=== PATIENT | male | born 1980 | race African-American/Black ===

== ENCOUNTER 2021-07-25 02:27 | Emergency (ER) | payer OTHER ==
[~2021-07-25] VITALS: Ht 160 cm; Wt 65.2 kg
--- NOTE | 2021-07-25 03:51 | PHYS DOC ---
Past History Past Surgical History: No Surgical History (JUAN BURNETT MD) Alcohol Use: Occasionally Additional Alcohol Information: Pt reports drinking vodka tonight (JUAN BURNETT MD) Adult General Chief Complaint Chief Complaint: ALCOHOL INTOXICATION HPI HPI Patient is a 40-year-old male who presents from the [facility] via EMS when the staff at the [facility] felt he was intoxicated/unresponsive. Per EMS, had a normal glucose, no signs of trauma and normal vital signs. States that when they spoke to him he would wake up, speak appropriately and then go back to sleep. Patient stated that he did drink a large amount of vodka earlier in the day and just wants to sleep. Denies any other drug use. Denies any recent traumas, travels, fevers, chest pain, shortness of breath, abdominal pain, nausea, vomiting, diarrhea. Denies any numbness/weakness/tingling. (JUAN BURNETT MD) Review of Systems Review of Systems Review of systems otherwise unremarkable except noted in HPI (JUAN BURNETT MD) Allergies Allergies Allergies Coded Allergies Type Severity Reaction Last Updated Verified No Known Drug Allergies 07/25/21 No (JUAN BURNETT MD) Physical Exam Physical Exam Constitutional: Well developed, well nourished, no acute distress, non-toxic appearance. [] HENT: Normocephalic, atraumatic, bilateral external ears normal, oropharynx moist, no oral exudates, nose normal. [] Eyes: PERRLA, EOMI, conjunctiva normal, no discharge. [] Neck: Normal range of motion, no tenderness, supple, no stridor. [] Cardiovascular:Heart rate regular rhythm, no murmur [] Lungs & Thorax: Bilateral breath sounds clear to auscultation [] Abdomen: soft, no tenderness, no masses, no pulsatile masses. [] Skin: Warm, dry, no erythema, no rash. [] Extremities: No tenderness, no cyanosis, no clubbing, ROM intact, no edema. [] Neurologic: Alert and oriented X 3, normal motor function, normal sensory function, no focal deficits noted. [] Psychologic: Affect normal, judgement abnormal, appears intoxicated but will wake up, and answer questions appropriately but states he just wants to go to sleep. Denies SI, HI or hallucinations. (JUAN BURNETT MD) Current Patient Data Vital Signs Vital Signs Date Time Temp Pulse Resp B/P (MAP) Pulse Ox O2 Delivery O2 Flow Rate FiO2 07/25/21 03:39 70 16 108/60 (76) 98 Room Air 07/25/21 02:38 98.3 (JUAN BURNETT MD) Vital Signs Vital Signs Date Time Temp Pulse Resp B/P (MAP) Pulse Ox O2 Delivery O2 Flow Rate FiO2 07/25/21 02:38 98.3 59 18 121/68 (85) 99 Room Air Vital Signs Date Time Temp Pulse Resp B/P (MAP) Pulse Ox O2 Delivery O2 Flow Rate FiO2 07/25/21 06:16 86 18 113/72 (86) 98 Room Air 07/25/21 02:38 98.3 Lab Results Laboratory Tests Test 07/25/21 04:21 07/25/21 05:20 Glucose (Fingerstick) 90 mg/dL White Blood Count 5.3 x10^3/uL Red Blood Count 4.76 x10^6/uL Hemoglobin 15.3 g/dL Hematocrit 44.3 % Mean Corpuscular Volume 93 fL Mean Corpuscular Hemoglobin 32 pg Mean Corpuscular Hemoglobin Concent 35 g/dL Red Cell Distribution Width 13.8 % Platelet Count 307 x10^3/uL Neutrophils (%) (Auto) 65 % Lymphocytes (%) (Auto) 27 % Monocytes (%) (Auto) 7 % Eosinophils (%) (Auto) 1 % Basophils (%) (Auto) 1 % Neutrophils # (Auto) 3.5 x10^3uL Lymphocytes # (Auto) 1.4 x10^3/uL Monocytes # (Auto) 0.4 x10^3/uL Eosinophils # (Auto) 0.0 x10^3/uL Basophils # (Auto) 0.0 x10^3/uL Sodium Level 143 mmol/L Potassium Level 4.1 mmol/L Chloride Level 106 mmol/L Carbon Dioxide Level 24 mmol/L Anion Gap 13 Blood Urea Nitrogen 13 mg/dL Creatinine 0.9 mg/dL Estimated GFR (Cockcroft-Gault) 113.1 Glucose Level 96 mg/dL Calcium Level 8.3 mg/dL Current Medications Medications (Trade) Dose Ordered Sig/Iris Route PRN Reason Start Time Stop Time Status Last Admin Dose Admin Lactated Ringer's 1,000 ml @ 1,000 mls/hr 1X ONCE IV 07/25/21 05:30 07/25/21 06:29 DC 07/25/21 05:33 (CLARA MODI DO) EKG EKG [] (JUAN BURNETT MD) Radiology/Procedures Radiology/Procedures [] (JUAN BURNETT MD) Heart Score C/O Chest Pain: No Risk Factors: Risk Factors: DM, Current or recent (<one month) smoker, HTN, HLP, family history of CAD, obesity. Risk Scores: Risk Factors: DM, Current or recent (<one month) smoker, HTN, HLP, family history of CAD, obesity. (JUAN BURNETT MD) C/O Chest Pain: No (CLARA MODI DO) Course & Med Decision Making Course & Med Decision Making Patient is 40-year-old male who presents from the [facility], due to concern for some unresponsiveness which later patient reported that he had drank a bunch of alcohol Vital signs not concerning. Physical exam noted above. Given Narcan with no response. Patient stated he just wanted to sleep for a little bit. Glucose normal. CT of the head normal. Patient able to take p.o. in the ED but goes right back to sleep. Patient care handed off to day team for continued evaluation and disposition. [] (JUAN BURNETT MD) Course & Med Decision Making I assumed care of patient after comprehensive signout from off going physician I reviewed entirety of ER work-up and personally saw patient repeating aspects of history and physical exam. Patient's mentation continued to improve as patient sobered up No alcohol level to trend; however, management would not change. Patient unwilling to give urine sample, again management would not change. Patient's m entation continued to improve and he was able to eat breakfast. AOx4 and requesting discharge at time of departure Strict return precautions discussed at length with good understanding by patient, all questions and concerns addressed prior to ER departure (CLARA MODI DO) Dragon Disclaimer Dragon Disclaimer This electronic medical record was generated, in whole or in part, using a voice recognition dictation system. (JUAN BURNETT MD) Departure Departure: Impression: Primary Impression: Alcohol intoxication Disposition: HOME / SELF CARE / HOMELESS Condition: STABLE Referrals: PCP,NO (PCP) CURTIS GARCIA MD Patient Instructions: Alcohol Intoxication Additional Instructions: Thank you for coming into the emergency department tonight and allowing us to take care of you. Please read all the attached information carefully to go over things we discussed. Please see his using alcohol while you are in the [facility] and in general stay away from any substances not prescribed to you by a physician. As we discussed, these things could impact your health and cause significant illness, disability and . Please follow-up with a primary care physician soon as you can to update on your ED visit and set up a follow-up. If you do not have a primary care physician you can call the physician at the number provided or contact one in the community resource packet given to you. Please come back to the emergency department with any of the new or concerning symptoms we discussed. JUAN BURNETT MD Jul 25, 2021 03:51 CLARA MODI DO Jul 25, 2021 06:33
--- NOTE | 2021-07-25 05:12 | RAD ---
CT Head W/O Contrast: History: Reason: ETOH, possible fall / Spl. Instructions: / History: Comparison: none Axial images were obtained without contrast. The clinton and white matter appears normal and symmetrical for the patients age. There is no mass effe ct, extraaxial fluid collections or hydrocephalus. There is no gross bleed. There is no focal loss of clinton-white matter distinction to suggest acute ischemia, i.e. stroke. Impression: No acute findings. RS Compliance Statement: One or more of the following individualized dose reduction techniques were utilized for this examinat ion: 1. Automated exposure control 2. Adjustment of the mA and/or kV according to patient size 3. Use of iterative reconstruction technique Electronically signed by: Vince Stone III, MD (07/25/2021 5:09 AM) [facility]
[2021-07-25] MEDS ORDERED: IV RINGERS SOLUTION,LACTATED 1,000 ML IV ONE (05:30)
[2021-07-25 05:33] LABS: BASO % 1 % (0-3); EOS % 1 % (0-3); HEMATOCRIT 44.3 % (39.0-53.0); HEMOGLOBIN 15.3 g/dL (13.0-17.5); LYMPH # 1.4 x10^3/uL (1.0-4.8); LYMPH % 27 % (24-48); MEAN CORPUSCULAR HEMOGLOBIN 32 pg (25-35); MEAN CORPUSCULAR HGB CONC 35 g/dL (31-37); MEAN CORPUSCULAR VOLUME 93 fL (79-100); MONO # 0.4 x10^3/uL (0.0-1.1); MONO % 7 % (0-9); NEUT # 3.5 x10^3uL (1.8-7.7); NEUT % 65 % (31-73); PLATELET COUNT 307 x10^3/uL (140-400); RED BLOOD COUNT 4.76 x10^6/uL (4.30-5.70); RED CELL DISTRIBUTION WIDTH 13.8 % (11.5-14.5); WHITE BLOOD COUNT 5.3 x10^3/uL (4.0-11.0)
[2021-07-25 05:42] LABS: CALCIUM 8.3 mg/dL (8.5-10.1); CREATININE 0.9 mg/dL (0.7-1.3); GFR 113.1; POTASSIUM 4.1 mmol/L (3.5-5.1)
[2021-07-25 06:16] VITALS: BP 113/72
== END 2021-07-25 09:36 | disposition home or self-care (01) ==
LOC: ER 02:27
DX: F10.129 Alcohol abuse with intoxication, unspecified (principal); Y90.9 Presence of alcohol in blood, level not specified
CPT/HCPCS: 36415; 70450; 80048; 82947; 85025; 96360; 99284; J7120